=== PATIENT | female | born 1960 | race Caucasian/White ===

== ENCOUNTER 2020-01-17 08:07 | Emergency (ER) | payer OTHER ==
[~2020-01-17] VITALS: Ht 172.7 cm; Wt 156.2 kg
[~2020-01-17 08:07] MED LIST: CHOL2000 PO; DOXY100T PO; DULO30CA2 PO; FLUO20CA23 PO; IBUP200T64 PO; METH500T7 PO; OMEP40CA42 PO; OXYC-307 PO; PRAM1TAB5 PO
--- NOTE | 2020-01-17 09:09 | NUR ---
PT TO ROOM FROM LOBBY
--- NOTE | 2020-01-17 09:30 | NUR ---
BECKI FOOTE AT BEDSIDE FOR INITIAL ASSESSMENT.
[2020-01-17] MEDS ORDERED: DIAZEPAM 5 MG/ML, 2ML IVPush ONE (10:00)
[2020-01-17] MEDS ORDERED: MORPHINE SULFATE 4 MG/ML, 1ML IVPush PRN (10:00)
[2020-01-17] MEDS ORDERED: KETOROLAC 30 MG/1 ML ONE (10:05)
[2020-01-17] MEDS ORDERED: MORPHINE SULFATE 4 MG/ML, 1ML ONE (10:06)
[2020-01-17] MEDS ORDERED: ONDANSETRON 2MG/ML, 2ML ONE (10:06)
--- NOTE | 2020-01-17 10:29 | NUR ---
PIV PLACED TO RT BREAST, FLUSHES EASILY WITH GOOD BLOOD RETURN. PT TOLERATED WELL. PT MEDICATED PER EMAR, TOLERATED WELL. BP AND SPO2 MONITORS IN PLACE. PT REPORTS PAIN DECREASED FROM 8/10 TO 6/10. EDPA QAMAR AT BEDSIDE AT THIS TIME, PT CONVERSING WITH EDPA REGARDING POC.
[2020-01-17] MEDS ORDERED: KETOROLAC 30 MG/1 ML IVPush ONE (10:30)
[2020-01-17] MEDS ORDERED: ONDANSETRON 2MG/ML, 2ML IVPush ONE (10:30)
[2020-01-17] MEDS ORDERED: SODIUM CHLORIDE FLUSH 10ML SYR IVF ONE (11:00)
[2020-01-17 11:40] VITALS: BP 128/77
== END 2020-01-17 11:42 | disposition home or self-care (01) ==
LOC: ED 09:20
DX: G89.29 Other chronic pain (principal); M54.5 Low back pain; M79.10 Myalgia, unspecified site; M51.36 Other intervertebral disc degeneration, lumbar region; M54.32 Sciatica, left side; Z79.899 Other long term (current) drug therapy
CPT/HCPCS: 96374; 96375; 99284; J1885; J2270; J2405; J7512